=== PATIENT | male | born 1990 | race Caucasian/White ===

== ENCOUNTER 2017-01-19 12:10 | Emergency (ER) | payer OTHER ==
[~2017-01-19] VITALS: Ht 185.4 cm; Wt 124.4 kg
[2017-01-19 13:22] LABS: HEMATOCRIT 43.1 % (38.0-50.0); MCH 29.2 PG (29.0-34.0); MCHC 33.2 G/DL (30.0-36.0); MEAN PLAT.VOLUME 9.4 uM^3 (9.0-12.4); PLATELET COUNT 244 K/uL (156-360); RBC DIS.WIDTH-SD 41.1 % (39-53); WHITE BLOOD COUNT 8.4 K/uL (4.1-10.2)
[2017-01-19 13:30] LABS: CHLORIDE 106 mEq/L (99-109); POTASSIUM 4.1 mEq/L (3.7-5.4); SODIUM 140 mEq/L (136-147)
[2017-01-19 13:31] LABS: GLUCOSE 94 mg/dL (70-99)
[2017-01-19 13:33] LABS: ANION GAP 11 MEQ/L (2-14)
[2017-01-19 13:35] LABS: GFR ESTIMATE (CALCULATED) > 59 mL/min/
[2017-01-19 13:36] LABS: UREA NITROGEN (BUN) 15 mg/dL (9-23)
[2017-01-19 14:54] LABS: D-DIMER ELISA < 0.15 mg/L FEU (< 0.57)
[2017-01-19 15:11] LABS: TROP-I INTERPRETATION NEGATIVE; TROPONIN-I < 0.01 ng/mL (0.0-0.30)
[2017-01-19 16:32] VITALS: BP 126/77
== END 2017-01-19 16:33 | disposition home or self-care (01) ==
LOC: RME 12:10 → EME 12:10 → RME 16:33
PROVIDERS: Nurse Practitioner Family
DX: R55 Syncope and collapse (principal); R42 Dizziness and giddiness; F17.200 Nicotine dependence, unspecified, uncomplicated
CPT/HCPCS: 71020; 80048; 84484; 85027; 85379; 93005; 99281; 99283